=== PATIENT | female | born 1955 ===

== ENCOUNTER 2020-02-01 21:54 | Inpatient (IN) ==
[2020-02-02] MEDS ORDERED: Enoxaparin 40 MG/0.4 ML SYR SUBCUT SCH (09:00)
[2020-02-02 09:54] LABS: ABS Basophils 0.1 10^3/ul (0-0.2); ABS Lymphocytes 1.6 10^3/ul (1.0-4.8); ABS Monocytes 0.8 10^3/ul (0-0.8); ABS Neutrophils 14.5 10^3/ul (1.5-7.7); Eosinophil % 0.2 %; Hematocrit 41 % (35-47); Hemoglobin 14.1 g/dL (12.0-16.0); Lymphocyte % 9.6 %; Mean Corpuscular HGB Conc 34 g/dL (31-36); Mean Corpuscular Hemoglobin 31 pg (27-31); Mean Corpuscular Volume 92 fL (80-97); Mean Platelet Volume 10.1 fL (7.4-10.4); Platelet Count 250 10^3/uL (150-450); Red Blood Count 4.51 10^6 /uL (3.70-4.87); Red Cell Distribution Width 14 % (10-15); White Blood Count 17.1 10^3/uL (3.5-10.8)
[2020-02-02 10:11] LABS: ALT 30 U/L (7-52); Albumin 4.2 g/dL (3.2-5.2); Albumin/Globulin Ratio 1.4 (1-3); Alkaline Phosphatase 57 U/L (34-104); BUN/Creatinine Ratio 27.3 (8-20); Blood Urea Nitrogen 18 mg/dL (6-24); CO2 Carbon Dioxide 26 mmol/L (22-32); Calcium 9.4 mg/dL (8.6-10.3); Chloride 106 mmol/L (101-111); EGFR African American 109.4 (>60); EGFR Non-African American 90.5 (>60); Globulin 3.1 g/dL (2-4); Glucose 78 mg/dL (70-100); Sodium 140 mmol/L (135-145); Total Protein 7.3 g/dL (6.4-8.9)
[2020-02-02 10:16] LABS: Troponin I 0.37 ng/mL (<0.03)
[2020-02-02 11:13] LABS: Anion Gap 8 mmol/L (2-11)
[2020-02-02] MEDS ORDERED: NS 0.9% 1000 ml BAG 1,000 ML IV SCH (11:15)
[2020-02-02] MEDS ORDERED: Heparin DRIP 25,000 UNITS BAG 25,000 UNITS/500 ML BAG IV SCH (11:30)
[2020-02-02] MEDS ORDERED: Magnesium Sulfate 2 gm BAG 2 GM/50 ML BAG IVPB ONE (13:28)
[2020-02-02] MEDS: Heparin 5000 UNITS/ML 1 mL VIAL IV SCH ×2 (13:43→23:04)
[2020-02-02 13:44] LABS: Troponin I 0.28 ng/mL (<0.03)
[2020-02-02] MEDS: KCL 20 MEQ/100 ML IVPREMIX 20 MEQ/100 ML BAG IV SCH ×2 (13:58→16:30)
[2020-02-02 14:10] LABS: TSH Ultra Thyroid Stim Horm 1.77 mcIU/mL (0.34-5.60)
[2020-02-02 14:12] LABS: Free T4 0.84 ng/dL (0.61-1.12)
[2020-02-02 15:03] LABS: Magnesium 2.1 mg/dL (1.9-2.7)
[2020-02-02 16:10] LABS: Potassium Redraw 3.6 mmol/L (3.5-5.0)
[2020-02-02 16:16] LABS: AST Redraw 19 U/L (13-39)
[2020-02-02] MEDS ORDERED: Potassium Chlor 20 meq TAB.ER PO ONE (16:35)
[2020-02-02 17:58] LABS: Troponin I 0.27 ng/mL (<0.03)
[2020-02-02 19:32] LABS: Urine Appearance Clear; Urine Bilirubin Negative (Negative); Urine Blood Negative (Negative); Urine Color Yellow; Urine Glucose Negative (Negative); Urine Ketones 1+ (Negative); Urine Nitrite Negative (Negative); Urine Protein Negative (Negative); Urine Specific Gravity 1.027 (1.010-1.030); Urine Urobilinogen Negative (Negative)
[2020-02-02 20:36] LABS: Troponin I 0.17 ng/mL (<0.03)
[2020-02-02] MEDS ORDERED: Atropine 0.1 MG/ML 10 ml SYR (1 mg) ONE (21:52)
[2020-02-02] MEDS ORDERED: Atropine 0.1 MG/ML 10 ml SYR (1 mg) IV PRN (22:00)
[2020-02-02 22:33] LABS: Calcium 9.1 mg/dL (8.6-10.3); EGFR African American 117.6 (>60); EGFR Non-African American 97.2 (>60); Potassium 4.4 mmol/L (3.5-5.0)
[2020-02-02 22:46] LABS: Troponin I 0.16 ng/mL (<0.03)
[2020-02-03] MEDS ORDERED: Azithromycin 500 mg/250 ml NS 500 MG/250 ML BAG IVPB SCH (03:00)
[2020-02-03] MEDS ORDERED: Doxycycline 100 MG in NS 0.9% 250 ML BAG IVPB SCH ×2 (03:00→05:00)
[2020-02-03] MEDS ORDERED: cefTRIAXone 1 gm/50 mL NS BAG 1 GM/50 ML BAG IVPB SCH (03:00)
[2020-02-03 05:44] LABS: ABS Basophils 0.1 10^3/ul (0-0.2); ABS Eosinophils 0.1 10^3/ul (0-0.6); ABS Lymphocytes 2.2 10^3/ul (1.0-4.8); ABS Monocytes 0.6 10^3/ul (0-0.8); ABS Neutrophils 6.4 10^3/ul (1.5-7.7); Hematocrit 40 % (35-47); Hemoglobin 13.8 g/dL (12.0-16.0); Lymphocyte % 23.2 %; Mean Corpuscular HGB Conc 34 g/dL (31-36); Mean Corpuscular Hemoglobin 32 pg (27-31); Mean Corpuscular Volume 93 fL (80-97); Mean Platelet Volume 10.6 fL (7.4-10.4); Nucleated Red Blood Cells % 0.1; Platelet Count 236 10^3/uL (150-450); Red Blood Count 4.34 10^6 /uL (3.70-4.87); Red Cell Distribution Width 14 % (10-15); White Blood Count 9.4 10^3/uL (3.5-10.8)
[2020-02-03] MEDS: Heparin 5000 UNITS/ML 1 mL VIAL IV SCH (06:47)
[2020-02-03 09:27] LABS: BUN/Creatinine Ratio 17.6 (8-20); Blood Urea Nitrogen 13 mg/dL (6-24); CO2 Carbon Dioxide 20 mmol/L (22-32); Calcium 8.1 mg/dL (8.6-10.3); Chloride 91 mmol/L (101-111); EGFR African American 95.9 (>60); EGFR Non-African American 79.3 (>60); Sodium 126 mmol/L (135-145)
[2020-02-03 09:30] LABS: Glucose 621 mg/dL (70-100)
[2020-02-03 10:44] LABS: BUN/Creatinine Ratio 24.2 (8-20); Blood Urea Nitrogen 15 mg/dL (6-24); CO2 Carbon Dioxide 22 mmol/L (22-32); Calcium 9.4 mg/dL (8.6-10.3); Chloride 105 mmol/L (101-111); EGFR African American 117.6 (>60); EGFR Non-African American 97.2 (>60); Glucose 96 mg/dL (70-100); Sodium 137 mmol/L (135-145)
[2020-02-03 10:57] LABS: Anion Gap 15 mmol/L (2-11)
[2020-02-03 11:37] LABS: Anion Gap 10 mmol/L (2-11)
[2020-02-03 15:39] LABS: BUN/Creatinine Ratio 20.5 (8-20); Calcium 9.4 mg/dL (8.6-10.3); EGFR African American 97.4 (>60); EGFR Non-African American 80.5 (>60)
[2020-02-03 15:39] LABS: Magnesium 2.3 mg/dL (1.9-2.7); Potassium Redraw 3.9 mmol/L (3.5-5.0)
[2020-02-04] MEDS: Heparin 5000 UNITS/ML 1 mL VIAL IV SCH (04:04)
[2020-02-04 05:18] LABS: ABS Basophils 0.1 10^3/ul (0-0.2); ABS Eosinophils 0.2 10^3/ul (0-0.6); ABS Monocytes 0.9 10^3/ul (0-0.8); ABS Neutrophils 6.3 10^3/ul (1.5-7.7); Eosinophil % 1.6 %; Hematocrit 39 % (35-47); Hemoglobin 13.5 g/dL (12.0-16.0); Lymphocyte % 20.9 %; Mean Corpuscular HGB Conc 34 g/dL (31-36); Mean Corpuscular Hemoglobin 32 pg (27-31); Mean Corpuscular Volume 92 fL (80-97); Mean Platelet Volume 10.4 fL (7.4-10.4); Platelet Count 217 10^3/uL (150-450); Red Blood Count 4.26 10^6 /uL (3.70-4.87); Red Cell Distribution Width 14 % (10-15); White Blood Count 9.4 10^3/uL (3.5-10.8)
[2020-02-04] MEDS: Saline NASAL SPRAY 0.65% BTL BOTH NARES SCH ×2 (16:15→19:22)
[2020-02-04 17:45] LABS: Activated Partial Thrombo Time 46.6 seconds (26.0-38.0)
[2020-02-04 18:24] LABS: INR 1.08 (0.82-1.09)
[2020-02-04] MEDS ORDERED: Polyethylene Glycol 3350 17 GM PACKET PO PRN (20:51)
[2020-02-04] MEDS: Heparin 5000 UNITS/ML 1 mL VIAL SUBCUT SCH (21:35)
[2020-02-05] MEDS: Saline NASAL SPRAY 0.65% BTL BOTH NARES SCH ×6 (00:30→22:04)
[2020-02-05 05:57] LABS: BUN/Creatinine Ratio 20.9 (8-20); Calcium 8.9 mg/dL (8.6-10.3); EGFR African American 107.6 (>60); EGFR Non-African American 88.9 (>60); Magnesium 2.1 mg/dL (1.9-2.7)
[2020-02-05] MEDS: Heparin 5000 UNITS/ML 1 mL VIAL SUBCUT SCH ×2 (08:22→22:04)
[2020-02-05] MEDS ORDERED: Lidocaine 1% VIAL 10 MG/ML VIAL ONE (10:57)
[2020-02-06] MEDS: Saline NASAL SPRAY 0.65% BTL BOTH NARES SCH ×3 (03:16→11:49)
[2020-02-06 05:45] LABS: ABS Eosinophils 0.1 10^3/ul (0-0.6); ABS Lymphocytes 1.4 10^3/ul (1.0-4.8); ABS Monocytes 0.4 10^3/ul (0-0.8); ABS Neutrophils 4.3 10^3/ul (1.5-7.7); Eosinophil % 1.7 %; Hematocrit 39 % (35-47); Hemoglobin 13.5 g/dL (12.0-16.0); Mean Corpuscular HGB Conc 35 g/dL (31-36); Mean Corpuscular Hemoglobin 32 pg (27-31); Mean Corpuscular Volume 91 fL (80-97); Mean Platelet Volume 9.8 fL (7.4-10.4); Platelet Count 229 10^3/uL (150-450); Red Blood Count 4.29 10^6 /uL (3.70-4.87); Red Cell Distribution Width 14 % (10-15); White Blood Count 6.3 10^3/uL (3.5-10.8)
[2020-02-06] MEDS: Heparin 5000 UNITS/ML 1 mL VIAL SUBCUT SCH ×2 (08:32→20:02)
[2020-02-06 11:46] LABS: BUN/Creatinine Ratio 23.2 (8-20); Calcium 9.3 mg/dL (8.6-10.3); EGFR Non-African American 85.9 (>60); Magnesium 2.1 mg/dL (1.9-2.7)
[2020-02-06] MEDS ORDERED: hydrALAZINE 20 mg/ml 1 ML Vial IV ONE (11:57)
[2020-02-06] MEDS ORDERED: hydrALAZINE 20 mg/ml 1 ML Vial IV IV SLOW PU PRN ×2 (12:44→16:22)
[2020-02-06] MEDS ORDERED: Midazolam 2 mg/2 ml VIAL 1 mg/ml 2 ml VIAL (2 mg) IV SLOW PU PRN (14:49)
[2020-02-06] MEDS ORDERED: Midazolam 10 mg/10 ml VIAL 1 mg/ml 10 ml VIAL (10 mg) IV SLOW PU PRN (18:18)
[2020-02-06] MEDS ORDERED: Gadobenate (CONTRAST) 529 MG/ML 10 ML SDV IV ONE (19:20)
[2020-02-07] MEDS: Heparin 5000 UNITS/ML 1 mL VIAL SUBCUT SCH (09:33)
[2020-02-07 13:36] LABS: BUN/Creatinine Ratio 28.8 (8-20); Calcium 9.6 mg/dL (8.6-10.3); EGFR African American 109.4 (>60); EGFR Non-African American 90.5 (>60); Magnesium 2.1 mg/dL (1.9-2.7); Potassium 4.1 mmol/L (3.5-5.0)
[2020-02-07 16:18] VITALS: BP 116/65
== END 2020-02-07 17:20 | disposition home or self-care (01) | DRG 981 ==
LOC: ICU 02-02 05:20 → MEDTELE 02-06 11:41
PROVIDERS: ADMIT Internal Medicine Interventional Cardiology; ATTEND Internal Medicine